=== PATIENT | male | born 1980 | race Caucasian/White ===

== ENCOUNTER 2022-05-04 09:07 | Outpatient (CLI) | payer OTHER ==
[2022-05-04] MEDS ORDERED: Iopamidol 300 61% 100 ML VIAL FS ONE (12:28)
== END 2022-05-04 09:08 | disposition home or self-care (01) ==
LOC: CSHCT 09:07
PROVIDERS: ATTEND Family Medicine
DX: R10.9 Unspecified abdominal pain (principal); R63.4 Abnormal weight loss; R11.0 Nausea; I87.8 Other specified disorders of veins; Z90.411 Acquired partial absence of pancreas
CPT/HCPCS: 74160; Q9967